=== PATIENT | male | born 2000 | race Caucasian/White ===

== ENCOUNTER 2018-01-08 17:45 | Emergency (ER) | payer OTHER, BC ==
[~2018-01-08 17:45] MED LIST: NAPROSYN500 MG PO
[2018-01-08 17:57] LABS: BASOPHIL (%) 0.6 % (0-1); BASOPHIL COUNT 0.1 K/uL (0-0.1); EOSINOPHIL (%) 0.7 % (0-5); EOSINOPHIL COUNT 0.1 K/uL (0-0.3); HEMATOCRIT 41.7 % (38.0-50.0); HEMOGLOBIN 15.2 G/DL (12.5-16.6); IMMATURE GRANULOCYTE (%) 0.3 % (0.0-0.7); LYMPHOCYTE (%) 43.1 % (15-42); LYMPHOCYTE COUNT 3.7 K/uL (1.0-2.8); MCH 30.8 PG (29.0-34.0); MCHC 36.5 G/DL (30.0-36.0); MCV 84.4 FL (86-99); MONOCYTE (%) 6.2 % (3-12); MONOCYTE COUNT 0.5 K/uL (0-0.8); NEUTROPHIL (%) 49.1 % (45-76); NEUTROPHIL COUNT 4.2 K/uL (1.8-6.4); PLATELET COUNT 258 K/uL (156-360); RBC DIS.WIDTH-CV 11.9 % (11.8-14.6); RBC DIS.WIDTH-SD 36.2 % (39-53); RED BLOOD COUNT 4.94 M/uL (4.00-5.50); WHITE BLOOD COUNT 8.7 K/uL (4.1-10.2)
[2018-01-08 18:12] LABS: CHLORIDE 107 mEq/L (99-109); POTASSIUM 3.8 mEq/L (3.7-5.4); SODIUM 143 mEq/L (136-147)
[2018-01-08 18:44] LABS: AMYLASE 56 IU/L (1-118)
[2018-01-08 18:45] LABS: GLUCOSE 126 mg/dL (70-99)
[2018-01-08 18:49] LABS: CREATININE 1.1 mg/dL (0.6-1.3); GFR ESTIMATE (CALCULATED) > 59 mL/min/ (58.99-99999); SERUM ETHYL ALCOHOL < 10 mg/dL
[2018-01-08 18:50] LABS: UREA NITROGEN (BUN) 14 mg/dL (9-23)
[2018-01-08 18:52] LABS: LIPASE 31 U/L (1.0-51.0)
[2018-01-08] MEDS ORDERED: KEFLEX500 MG PO (21:40)
== END 2018-01-08 21:55 | disposition home or self-care (01) ==
LOC: TRA 17:45
PROVIDERS: Emergency Medicine
DX: S01.81XA Laceration without foreign body of other part of head, initial encounter (principal); S01.511A Laceration without foreign body of lip, initial encounter; S30.811A Abrasion of abdominal wall, initial encounter; S30.810A Abrasion of lower back and pelvis, initial encounter; V29.40XA Motorcycle driver injured in collision with unspecified motor vehicles in traffic accident, initial encounter; Y92.410 Unspecified street and highway as the place of occurrence of the external cause; Z23 Encounter for immunization
CPT/HCPCS: 70450; 71260; 72125; 72129; 72132; 73552; 73630; 74177; 80048; 81003; 82150; 83690; 85025; 86850; 86900; 86901; 99281; 99285; G0480; J3010